=== PATIENT | female | born 1985 | race Caucasian/White ===

== ENCOUNTER 2017-03-27 12:54 | Emergency (ER) | payer OTHER ==
[~2017-03-27] VITALS: Ht 157.5 cm; Wt 100.2 kg
[2017-03-27 13:08] VITALS: Ht 157.5 cm; Wt 100.2 kg
[2017-03-27 13:45] VITALS: BP 142/64
== END 2017-03-27 13:45 | disposition home or self-care (01) ==
LOC: ED 12:54
DX: R07.89 Other chest pain (principal)
CPT/HCPCS: 83880

== ENCOUNTER 2017-05-02 16:52 | Emergency (ER) | payer OTHER ==
[~2017-05-02] VITALS: Ht 162.6 cm; Wt 107.0 kg
[2017-05-02 17:00] VITALS: Ht 162.6 cm; Wt 107.0 kg
[2017-05-02 18:03] LABS: BASOPHIL % 0.5 % (0-2)
[2017-05-02 18:11] LABS: CALCIUM 8.2 mg/dL (8.5-10.1); CARBON DIOXIDE 26.8 mmol/L (21-32); CHLORIDE SERUM 106 mmol/L (98-107); GFR1 > 60 mL/min; GLUCOSE SERUM 113 mg/dL (74-106); PLATELET COUNT 543 x10^3mcL (130-400); POTASSIUM SERUM 4.2 mmol/L (3.5-5.1); RED CELL DISTRIBUTION WIDTH 28.7 % (11.5-14.5); SODIUM SERUM 140 mmol/L (136-145)
[2017-05-02 18:15] LABS: ALKALINE PHOSPHATASE 53 U/L (46-116); ALT/SGPT 31 U/L (14-59); AMYLASE 39 U/L (25-115); AST/SGOT 20 U/L (15-37); BILIRUBIN TOTAL 0.4 mg/dL (0.20-1.00); LIPASE 100 IU/L (73-393); TOTAL PROTEIN, SERUM 7.5 g/dL (6.4-8.2)
[2017-05-02 18:16] VITALS: BP 142/58
[2017-05-02 18:19] LABS: ALBUMIN 3.3 g/dL (3.4-5.0)
[2017-05-02 18:52] LABS: acanthocyte (spur cell) 1+; ovalocyte/elliptocyte 1+; rbc morphology (normal/abnorm) ABNORMAL (NORMAL); target cell (codocyte) 2+
== END 2017-05-02 19:39 | disposition home or self-care (01) ==
LOC: ED 16:52
PROVIDERS: Emergency Medicine
DX: K52.9 Noninfective gastroenteritis and colitis, unspecified (principal); F17.210 Nicotine dependence, cigarettes, uncomplicated; E78.00 Pure hypercholesterolemia, unspecified; I10 Essential (primary) hypertension; Z88.0 Allergy status to penicillin; Z88.1 Allergy status to other antibiotic agents; Z88.8 Allergy status to other drugs, medicaments and biological substances; Z71.6 Tobacco abuse counseling
CPT/HCPCS: 83880; 99406; J1200; J2270; J2405; Q9967

== ENCOUNTER 2018-03-26 18:48 | Inpatient (IN) | payer MEDICAID ==
[~2018-03-26] VITALS: Ht 157.5 cm; Wt 113.0 kg
[2018-03-26 19:20] VITALS: Ht 157.5 cm; Wt 113.0 kg
[2018-03-26 20:23] LABS: BASOPHIL % 2.6 % (0-2); PLATELET COUNT 632 x10^3mcL (130-400); RED CELL DISTRIBUTION WIDTH 19.7 % (11.5-14.5)
[2018-03-26 20:34] LABS: AMPHETAMINE QUAL UR NONE DETECTED (See below)
[2018-03-26 20:42] LABS: CALCIUM 8.2 mg/dL (8.5-10.1); CARBON DIOXIDE 27.4 mmol/L (21-32); CHLORIDE SERUM 102 mmol/L (98-107); CREATININE SERUM 0.9 mg/dL (0.6-1.0); GFR1 > 60 mL/min; GLUCOSE SERUM 90 mg/dL (74-106); POTASSIUM SERUM 3.2 mmol/L (3.5-5.1); SODIUM SERUM 135 mmol/L (136-145)
[2018-03-26 20:51] LABS: ALKALINE PHOSPHATASE 84 U/L (46-116); ALT/SGPT 23 U/L (14-59); AST/SGOT 19 U/L (15-37); BILIRUBIN TOTAL 0.62 mg/dL (0.20-1.00); FREE T4 1.03 ng/dL (0.76-1.46); LIPASE 88 IU/L (73-393); TOTAL PROTEIN, SERUM 8.1 g/dL (6.4-8.2)
[2018-03-26 20:52] LABS: ALBUMIN 3.1 g/dL (3.4-5.0)
[2018-03-26] MEDS ORDERED: ASPIR 8181 MG PO (23:47)
[2018-03-26] MEDS ORDERED: ZESTRIL20 MG PO (23:48)
[2018-03-26] MEDS ORDERED: PLA75 PO (23:48)
[2018-03-27 00:15] LABS: PHOSPHOROUS 2.8 mg/dL (2.5-4.9)
[2018-03-27 00:22] LABS: CHOLESTEROL/HDL RATIO 5.1
[2018-03-27 00:25] LABS: FREE T4 1.04 ng/dL (0.76-1.46); FREE THYROXINE INDEX 2.4 ug/dL (1.4-4.5); T3 TOTAL 0.81 ng/mL; T4(THYROXINE) 6.4 ug/dL (4.7-13.3)
[2018-03-27 00:36] VITALS: BP 144/72
[2018-03-27] MEDS ORDERED: XANAX0.5 MG PO (01:18)
[2018-03-27 05:27] VITALS: BP 147/70
[2018-03-27 06:40] LABS: CALCIUM 8.6 mg/dL (8.5-10.1); CARBON DIOXIDE 25.5 mmol/L (21-32); CHLORIDE SERUM 100 mmol/L (98-107); CREATININE SERUM 0.9 mg/dL (0.6-1.0); GFR1 > 60 mL/min; GLUCOSE SERUM 174 mg/dL (74-106); MAGNESIUM 2.2 mg/dL (1.8-2.4); PHOSPHOROUS 1.4 mg/dL (2.5-4.9); POTASSIUM SERUM 3.8 mmol/L (3.5-5.1); SODIUM SERUM 131 mmol/L (136-145)
[2018-03-27 08:14] LABS: RED CELL DISTRIBUTION WIDTH 19.7 % (11.5-14.5)
[2018-03-27 08:15] LABS: PLATELET COUNT 632 x10^3mcL (130-400)
[2018-03-27 10:45] VITALS: BP 154/75
[2018-03-27 12:29] LABS: BAND NEUTROPHIL 2 % (0-10); MONOCYTE 1 % (0-7); SEGMENTED NEUTROPHILS 90 % (37-75); rbc morphology (normal/abnorm) ABNORMAL (NORMAL)
[2018-03-27 12:30] LABS: acanthocyte (spur cell) 1+; ovalocyte/elliptocyte 1+; target cell (codocyte) 2+
[2018-03-27 12:31] LABS: PLATELET MORPHOLOGY LARGE PLATELET SEEN
[2018-03-27 13:19] LABS: UA SPECIFIC GRAVITY >=1.030 (1.005-1.035); microscopic required? YES; urine erythrocyte 1+ (NEGATIVE)
[2018-03-27 14:40] VITALS: BP 154/71
[2018-03-27 18:58] VITALS: BP 171/71
[2018-03-27 21:42] VITALS: BP 144/62
[2018-03-28] VITALS (7 sets, daily range): BP systolic 135–179; BP diastolic 61–86
[2018-03-28 07:24] LABS: PLATELET COUNT 586 x10^3mcL (130-400); RED CELL DISTRIBUTION WIDTH 20.1 % (11.5-14.5)
[2018-03-28 07:33] LABS: CALCIUM 8.1 mg/dL (8.5-10.1); CARBON DIOXIDE 26.3 mmol/L (21-32); CHLORIDE SERUM 106 mmol/L (98-107); CREATININE SERUM 0.9 mg/dL (0.6-1.0); GFR1 > 60 mL/min; GLUCOSE SERUM 99 mg/dL (74-106); MAGNESIUM 2.2 mg/dL (1.8-2.4); PHOSPHOROUS 3.4 mg/dL (2.5-4.9); POTASSIUM SERUM 4.1 mmol/L (3.5-5.1); SODIUM SERUM 140 mmol/L (136-145)
[2018-03-28 10:04] LABS: BAND NEUTROPHIL 5 % (0-10); BASOPHIL 0 % (0-2); MONOCYTE 4 % (0-7); SEGMENTED NEUTROPHILS 81 % (37-75)
[2018-03-28 10:05] LABS: PLATELET MORPHOLOGY PLATELETS INCREASED; acanthocyte (spur cell) 1+; ovalocyte/elliptocyte 1+; rbc morphology (normal/abnorm) ABNORMAL (NORMAL); target cell (codocyte) 1+
[2018-03-29 06:09] VITALS: BP 152/72
[2018-03-29 07:12] LABS: CALCIUM 8.5 mg/dL (8.5-10.1); CARBON DIOXIDE 28.6 mmol/L (21-32); CHLORIDE SERUM 102 mmol/L (98-107); CREATININE SERUM 0.9 mg/dL (0.6-1.0); GFR1 > 60 mL/min; GLUCOSE SERUM 88 mg/dL (74-106); POTASSIUM SERUM 4.2 mmol/L (3.5-5.1); SODIUM SERUM 134 mmol/L (136-145)
[2018-03-29 08:40] LABS: PLATELET COUNT 629 x10^3mcL (130-400); RED CELL DISTRIBUTION WIDTH 19.5 % (11.5-14.5)
[2018-03-29 09:44] VITALS: BP 118/51
[2018-03-29 11:02] LABS: ATYPICAL LYMPH 8 %; BAND NEUTROPHIL 1 % (0-10); MONOCYTE 7 % (0-7); PLATELET MORPHOLOGY PLATELETS INCREASED; SEGMENTED NEUTROPHILS 67 % (37-75); acanthocyte (spur cell) 2+; rbc morphology (normal/abnorm) ABNORMAL (NORMAL)
[2018-03-29 12:47] VITALS: BP 143/68
[2018-03-29 17:20] VITALS: BP 121/50
[2018-03-29 21:17] VITALS: BP 108/54
[2018-03-30 05:15] VITALS: BP 98/48
[2018-03-30 07:29] LABS: CALCIUM 8.5 mg/dL (8.5-10.1); CARBON DIOXIDE 27.4 mmol/L (21-32); CHLORIDE SERUM 101 mmol/L (98-107); CREATININE SERUM 1.1 mg/dL (0.6-1.0); GFR1 > 60 mL/min; GLUCOSE SERUM 95 mg/dL (74-106); POTASSIUM SERUM 3.7 mmol/L (3.5-5.1); SODIUM SERUM 137 mmol/L (136-145)
[2018-03-30 08:50] LABS: PLATELET COUNT 587 x10^3mcL (130-400)
[2018-03-30 08:53] VITALS: BP 120/48
[2018-03-30 10:17] LABS: ATYPICAL LYMPH 9 %; BAND NEUTROPHIL 0 % (0-10); BASOPHIL 0 % (0-2); MONOCYTE 10 % (0-7); SEGMENTED NEUTROPHILS 66 % (37-75)
[2018-03-30 10:18] LABS: PLATELET MORPHOLOGY PLATELETS INCREASED; rbc morphology (normal/abnorm) ABNORMAL (NORMAL); schistocyte (helmet cell) 1+
[2018-03-30 13:31] VITALS: BP 131/53
[2018-03-30 17:24] VITALS: BP 102/42
[2018-03-30 20:52] VITALS: BP 103/45
[2018-03-30 22:48] VITALS: BP 115/57
[2018-03-31 05:32] VITALS: BP 117/59
[2018-03-31 09:05] LABS: PLATELET COUNT 618 x10^3mcL (130-400); RED CELL DISTRIBUTION WIDTH 19.6 % (11.5-14.5)
[2018-03-31 09:13] LABS: CALCIUM 8.2 mg/dL (8.5-10.1); CARBON DIOXIDE 28.7 mmol/L (21-32); CREATININE SERUM 1.3 mg/dL (0.6-1.0)
[2018-03-31 09:59] LABS: ATYPICAL LYMPH 11 %; BAND NEUTROPHIL 0 % (0-10); BASOPHIL 0 % (0-2); MONOCYTE 4 % (0-7); SEGMENTED NEUTROPHILS 70 % (37-75)
[2018-03-31 10:00] LABS: PLATELET MORPHOLOGY PLATELETS INCREASED; acanthocyte (spur cell) 1+; rbc morphology (normal/abnorm) ABNORMAL (NORMAL); tear drop cell (dacryocyte) 2+
[2018-03-31 10:09] VITALS: BP 109/36
[2018-03-31 13:40] VITALS: BP 137/47
[2018-03-31 17:13] VITALS: BP 130/46
[2018-03-31 20:33] VITALS: BP 125/39
[2018-04-01 05:19] VITALS: BP 114/30
[2018-04-01 06:39] LABS: CALCIUM 8.3 mg/dL (8.5-10.1); CHLORIDE SERUM 104 mmol/L (98-107); GFR1 > 60 mL/min; GLUCOSE SERUM 91 mg/dL (74-106); POTASSIUM SERUM 4.7 mmol/L (3.5-5.1); SODIUM SERUM 137 mmol/L (136-145)
[2018-04-01 07:56] LABS: PLATELET COUNT 594 x10^3mcL (130-400); RED CELL DISTRIBUTION WIDTH 19.5 % (11.5-14.5)
[2018-04-01 09:00] VITALS: BP 145/73
== END 2018-04-01 11:43 | disposition left against medical advice (07) | DRG 720 ==
LOC: ED 18:48 → DU 23:11
PROVIDERS: Emergency Medicine; ADMIT Family Medicine
DX: A41.9 Sepsis, unspecified organism (principal); N17.0 Acute kidney failure with tubular necrosis; J18.9 Pneumonia, unspecified organism; D89.9 Disorder involving the immune mechanism, unspecified; E66.01 Morbid (severe) obesity due to excess calories; E44.1 Mild protein-calorie malnutrition; E11.9 Type 2 diabetes mellitus without complications; M94.0 Chondrocostal junction syndrome [Tietze]; Z68.41 Body mass index [BMI] 40.0-44.9, adult; E87.6 Hypokalemia; E87.1 Hypo-osmolality and hyponatremia; I10 Essential (primary) hypertension; D47.3 Essential (hemorrhagic) thrombocythemia; J20.9 Acute bronchitis, unspecified; I25.10 Atherosclerotic heart disease of native coronary artery without angina pectoris; Z95.1 Presence of aortocoronary bypass graft; Z90.81 Acquired absence of spleen; Z86.711 Personal history of pulmonary embolism; F17.210 Nicotine dependence, cigarettes, uncomplicated
CPT/HCPCS: 82962; 83880; 84439; 87804; J1200; J1580; J1956; J2060; J2270; J2405; J2930; J3490; J7030; J7620; Q0092; Q0163

== ENCOUNTER 2018-04-29 16:28 | Inpatient (IN) | payer SELFPAY ==
[~2018-04-29] VITALS: Ht 157.5 cm; Wt 109.0 kg
[~2018-04-29 16:28] MED LIST: ASPIR 8181 MG PO; PLA75 PO; XANAX0.5 MG PO; ZESTRIL20 MG PO
[2018-04-29 16:32] VITALS: Ht 157.5 cm; Wt 109.0 kg
[2018-04-29 17:44] LABS: RED CELL DISTRIBUTION WIDTH 19.4 % (11.5-14.5)
[2018-04-29 17:54] LABS: ALKALINE PHOSPHATASE 72 U/L (46-116); ALT/SGPT 37 U/L (14-59); AMYLASE 28 U/L (25-115); AST/SGOT 23 U/L (15-37); BILIRUBIN TOTAL 0.61 mg/dL (0.20-1.00); CALCIUM 8.4 mg/dL (8.5-10.1); CARBON DIOXIDE 27.2 mmol/L (21-32); CREATININE SERUM 0.9 mg/dL (0.6-1.0); GFR1 > 60 mL/min; GLUCOSE SERUM 92 mg/dL (74-106); LIPASE 58 IU/L (73-393); T4(THYROXINE) 5.5 ug/dL (4.7-13.3); TOTAL PROTEIN, SERUM 7.9 g/dL (6.4-8.2)
[2018-04-29 17:55] LABS: ALBUMIN 2.8 g/dL (3.4-5.0); CHOLESTEROL 108 mg/dL (<200); HDL CHOLESTEROL 22 mg/dL (40-60)
[2018-04-29 17:59] LABS: CHLORIDE SERUM 104 mmol/L (98-107); POTASSIUM SERUM 3.6 mmol/L (3.5-5.1); SODIUM SERUM 139 mmol/L (136-145)
[2018-04-29 18:20] LABS: BAND NEUTROPHIL 0 % (0-10); BASOPHIL 0 % (0-2); MONOCYTE 7 % (0-7); SEGMENTED NEUTROPHILS 64 % (37-75)
[2018-04-29 18:21] LABS: rbc morphology (normal/abnorm) ABNORMAL (NORMAL)
[2018-04-29 18:24] LABS: PLATELET COUNT 501 x10^3mcL (130-400)
[2018-04-29 19:55] LABS: UA SPECIFIC GRAVITY >=1.030 (1.005-1.035); microscopic required? YES; urine erythrocyte 1+ (NEGATIVE)
[2018-04-29 20:14] LABS: AMPHETAMINE QUAL UR NONE DETECTED (See below)
[2018-04-29 21:02] VITALS: BP 146/56
[2018-04-29 21:03] LABS: MAGNESIUM 2.1 mg/dL (1.8-2.4); PHOSPHOROUS 2.6 mg/dL (2.5-4.9)
[2018-04-29 21:04] LABS: CHOLESTEROL/HDL RATIO 5.6
[2018-04-30] VITALS (8 sets, daily range): BP systolic 129–160; BP diastolic 50–80
[2018-04-30 12:36] LABS: CALCIUM 8.1 mg/dL (8.5-10.1); CARBON DIOXIDE 25.9 mmol/L (21-32); CHLORIDE SERUM 105 mmol/L (98-107); GFR1 > 60 mL/min; GLUCOSE SERUM 194 mg/dL (74-106); POTASSIUM SERUM 3.9 mmol/L (3.5-5.1); SODIUM SERUM 138 mmol/L (136-145)
[2018-04-30 12:52] LABS: PLATELET COUNT 483 x10^3mcL (130-400); RED CELL DISTRIBUTION WIDTH 19.7 % (11.5-14.5)
[2018-04-30 13:11] LABS: ATYPICAL LYMPH 3 %; BAND NEUTROPHIL 7 % (0-10); BASOPHIL 0 % (0-2); MONOCYTE 3 % (0-7); SEGMENTED NEUTROPHILS 79 % (37-75)
[2018-04-30 13:12] LABS: rbc morphology (normal/abnorm) ABNORMAL (NORMAL)
[2018-04-30 13:13] LABS: PLATELET MORPHOLOGY PLATELETS INCREASED; target cell (codocyte) 2+
[2018-05-01 05:58] VITALS: BP 118/54
[2018-05-01 07:33] LABS: CALCIUM 8.2 mg/dL (8.5-10.1); CARBON DIOXIDE 26.9 mmol/L (21-32); CHLORIDE SERUM 106 mmol/L (98-107); CREATININE SERUM 0.9 mg/dL (0.6-1.0); GFR1 > 60 mL/min; GLUCOSE SERUM 116 mg/dL (74-106); POTASSIUM SERUM 3.5 mmol/L (3.5-5.1); SODIUM SERUM 143 mmol/L (136-145)
[2018-05-01 08:14] LABS: PLATELET COUNT 525 x10^3mcL (130-400); RED CELL DISTRIBUTION WIDTH 19.6 % (11.5-14.5)
[2018-05-01 09:47] VITALS: BP 129/70
[2018-05-01 11:50] LABS: ATYPICAL LYMPH 1 %; BAND NEUTROPHIL 4 % (0-10); BASOPHIL 0 % (0-2); MONOCYTE 9 % (0-7); MYELOCYTE 1 % (0-2); SEGMENTED NEUTROPHILS 61 % (37-75)
[2018-05-01 11:53] LABS: rbc morphology (normal/abnorm) ABNORMAL (NORMAL)
[2018-05-01 11:54] LABS: burr cell (echinocyte) 1+; ovalocyte/elliptocyte 1+; schistocyte (helmet cell) 1+; target cell (codocyte) 2+; tear drop cell (dacryocyte) 1+
[2018-05-01 14:12] VITALS: BP 160/83
[2018-05-01 17:31] VITALS: BP 120/47
[2018-05-01 20:53] VITALS: BP 114/50
[2018-05-02 05:46] VITALS: BP 119/74
[2018-05-02 07:44] LABS: CALCIUM 7.8 mg/dL (8.5-10.1); CARBON DIOXIDE 27.8 mmol/L (21-32); CHLORIDE SERUM 106 mmol/L (98-107); GFR1 > 60 mL/min; GLUCOSE SERUM 89 mg/dL (74-106); POTASSIUM SERUM 4.4 mmol/L (3.5-5.1); SODIUM SERUM 140 mmol/L (136-145)
[2018-05-02 08:19] VITALS: BP 128/61
[2018-05-02 08:27] LABS: PLATELET COUNT 512 x10^3mcL (130-400); RED CELL DISTRIBUTION WIDTH 19.7 % (11.5-14.5)
[2018-05-02 11:51] VITALS: BP 146/61
[2018-05-02 14:48] LABS: ATYPICAL LYMPH 9 %; BAND NEUTROPHIL 1 % (0-10); BASOPHIL 0 % (0-2); MONOCYTE 13 % (0-7); SEGMENTED NEUTROPHILS 45 % (37-75); rbc morphology (normal/abnorm) ABNORMAL (NORMAL)
[2018-05-02 14:49] LABS: PLATELET MORPHOLOGY PLATELETS INCREASED; target cell (codocyte) 2+
[2018-05-02 16:22] VITALS: BP 156/83
[2018-05-02 20:57] VITALS: BP 172/88
[2018-05-03] VITALS (7 sets, daily range): BP systolic 133–185; BP diastolic 55–83
[2018-05-03 06:09] LABS: CALCIUM 8.2 mg/dL (8.5-10.1); CHLORIDE SERUM 105 mmol/L (98-107); GFR1 > 60 mL/min; GLUCOSE SERUM 104 mg/dL (74-106); POTASSIUM SERUM 4.2 mmol/L (3.5-5.1); SODIUM SERUM 139 mmol/L (136-145)
[2018-05-03 07:30] LABS: RED CELL DISTRIBUTION WIDTH 19.2 % (11.5-14.5)
[2018-05-03 09:35] LABS: MONOCYTE 2 % (0-7); PLATELET MORPHOLOGY PLATELETS INCREASED; SEGMENTED NEUTROPHILS 52 % (37-75); rbc morphology (normal/abnorm) ABNORMAL (NORMAL); target cell (codocyte) 1+
[2018-05-03 09:38] LABS: PLATELET COUNT 527 x10^3mcL (130-400)
[2018-05-04 05:33] VITALS: BP 125/53
[2018-05-04 05:51] VITALS: BP 155/67
[2018-05-04 06:12] LABS: BASOPHIL % 0.2 % (0-2)
[2018-05-04 06:47] LABS: CALCIUM 8.2 mg/dL (8.5-10.1); CARBON DIOXIDE 24.2 mmol/L (21-32); CHLORIDE SERUM 104 mmol/L (98-107); GFR1 > 60 mL/min; GLUCOSE SERUM 107 mg/dL (74-106); SODIUM SERUM 138 mmol/L (136-145)
[2018-05-04 07:39] VITALS: BP 135/62
[2018-05-04 09:40] LABS: RED CELL DISTRIBUTION WIDTH 19.2 % (11.5-14.5)
[2018-05-04 09:44] LABS: PLATELET COUNT 554 x10^3mcL (130-400)
[2018-05-04] MEDS ORDERED: MUCINEX600 MG PO (10:16)
[2018-05-04] MEDS ORDERED: DOXYCYCLINE HY100 MG PO (10:16)
[2018-05-04] MEDS ORDERED: LAC PO (10:17)
[2018-05-04 12:23] VITALS: BP 135/62
== END 2018-05-04 13:12 | disposition home or self-care (01) | DRG 193 ==
LOC: ED 16:28 → DU 19:44
PROVIDERS: Emergency Medicine; ADMIT Internal Medicine
DX: J18.1 Lobar pneumonia, unspecified organism (principal); J96.01 Acute respiratory failure with hypoxia; N17.0 Acute kidney failure with tubular necrosis; Q89.01 Asplenia (congenital); E44.0 Moderate protein-calorie malnutrition; R65.10 Systemic inflammatory response syndrome (SIRS) of non-infectious origin without acute organ dysfunction; Z68.41 Body mass index [BMI] 40.0-44.9, adult; Z88.0 Allergy status to penicillin; Z88.8 Allergy status to other drugs, medicaments and biological substances; Z90.81 Acquired absence of spleen; I11.0 Hypertensive heart disease with heart failure; I50.9 Heart failure, unspecified; Z95.1 Presence of aortocoronary bypass graft; E78.00 Pure hypercholesterolemia, unspecified; F41.9 Anxiety disorder, unspecified; I25.10 Atherosclerotic heart disease of native coronary artery without angina pectoris; F17.200 Nicotine dependence, unspecified, uncomplicated; Z71.3 Dietary counseling and surveillance; E66.01 Morbid (severe) obesity due to excess calories; D47.3 Essential (hemorrhagic) thrombocythemia; Z90.49 Acquired absence of other specified parts of digestive tract; N26.1 Atrophy of kidney (terminal); E11.65 Type 2 diabetes mellitus with hyperglycemia; M94.0 Chondrocostal junction syndrome [Tietze]
CPT/HCPCS: 36600; 83880; 85378; 87804; 90732; 94150; 99406; J0132; J0456; J1200; J1644; J1956; J2270; J2405; J2930; J3490; J7613; J7620; J7644; Q0092; Q9967

== ENCOUNTER 2018-06-20 16:21 | Inpatient (IN) | payer SELFPAY ==
[~2018-06-20] VITALS: Ht 154.9 cm; Wt 111.2 kg
[~2018-06-20 16:21] MED LIST changes: +DOXYCYCLINE HY100 MG PO; +LAC PO; +MUCINEX600 MG PO
[2018-06-20 16:26] VITALS: Ht 154.9 cm; Wt 111.2 kg
--- NOTE | 2018-06-20 17:09 | NUR ---
PT PRESENTS TO ED WITH C/O CHEST PAIN AND SOB X4 DAYS. PT STS SHE WAS SEEN AT [facility] ON 05/23/18 AND WAS TOLD SHE HAS "A CLOT" IN HER LUNGS. PT WAS PRESCRIBED BLOOD THINNER BUT HAS NOT BEEN ABLE TO FILL RX DUE TO COST. PT STS CP BECAME WORSE TODAY SO SHE CAME TO ED. PT DENIES FEVER, SYNCOPE, ABDOMINAL PAIN, OR GENERAL WEAKNESS. PT STS CHEST PAIN FEELS LIKE PRESSURE IN THE CENTER OF HER CHEST AND DOES NOT RADIATE. PT AAOX4, ON FULL CM, RESP E/U, SITTING UP ON GURNEY, NO ACUTE DISTRESS NOTED AT THIS TIME. WILL CONTINUE TO MONITOR.
[2018-06-20 17:18] LABS: PLATELET COUNT 556 x10^3mcL (130-400); RED CELL DISTRIBUTION WIDTH 20.1 % (11.5-14.5)
[2018-06-20 17:23] LABS: CALCIUM 8.4 mg/dL (8.5-10.1); CARBON DIOXIDE 27.9 mmol/L (21-32); CHLORIDE SERUM 106 mmol/L (98-107); GFR1 > 60 mL/min; GLUCOSE SERUM 128 mg/dL (74-106); POTASSIUM SERUM 3.9 mmol/L (3.5-5.1); SODIUM SERUM 141 mmol/L (136-145)
[2018-06-20 17:35] LABS: ALKALINE PHOSPHATASE 70 U/L (46-116); ALT/SGPT 33 U/L (14-59); AST/SGOT 14 U/L (15-37); BILIRUBIN TOTAL 0.49 mg/dL (0.20-1.00); TOTAL PROTEIN, SERUM 7.4 g/dL (6.4-8.2)
[2018-06-20 17:54] LABS: BAND NEUTROPHIL 0 % (0-10); BASOPHIL 0 % (0-2); MONOCYTE 5 % (0-7); SEGMENTED NEUTROPHILS 68 % (37-75); rbc morphology (normal/abnorm) ABNORMAL (NORMAL)
--- NOTE | 2018-06-20 18:00 | NUR ---
PT REQUESTED MED FOR CHEST PAIN, NOTIFIED.
--- NOTE | 2018-06-20 19:13 | NUR ---
PT TO CT VIA GURNEY IN NAD. BREATHING EVEN AND UNLABORED. AWAKE AND ALERT.
--- NOTE | 2018-06-20 19:22 | NUR ---
REPORT GIVEN TO RAVINDER HUIZAR TO ASSUME CARE OF PT.
--- NOTE | 2018-06-20 19:35 | NUR ---
PT BACK FROM CT VIA AMBERLY. PT A&OX4, SPEAKING FULL CLEAR SENTENCES. PT IN NAD. BREATHING EVEN AND UNLABORED. CM AND [address] WILL CONTINUE TO MONITOR.
--- NOTE | 2018-06-20 20:45 | NUR ---
PT OBSERVED RESTING ON GURNEY IN NAD. BREATHING EVEN AND UNLABORED. PT A&OX4, SPEAKING FULL CLEAR SENTENCES. LIGHTS OFF FOR PT COMFORT. WILL CONTINUE TO MONITOR.
--- NOTE | 2018-06-20 22:01 | NUR ---
PT PROVIDED WITH ICE FOR SPORTS DRINK BROUGHT FROM HOME, OKAY PER DR AZUL.
--- NOTE | 2018-06-21 00:04 | NUR ---
MEDICATION ADMINISTERED PER MD ORDER
--- NOTE | 2018-06-21 00:58 | NUR ---
PT IN NAD, A&OX4, SPEAKING FULL CLEAR SENTENCES. BREATHING EVEN AND UNLABORED, PT AMBULATED TO RESTROOM WITH STEADY GAIT. WILL CONTINUE TO MONITOR.
[2018-06-21] MEDS ORDERED: METOPROLOL SUCC50 M2 PO (01:04)
[2018-06-21] MEDS ORDERED: LASIX40 MG PO (01:05)
[2018-06-21] MEDS ORDERED: PRAVACHOL20 MG (01:06)
[2018-06-21 01:18] LABS: FREE T4 0.93 ng/dL (0.76-1.46); FREE THYROXINE INDEX 2.1 ug/dL (1.4-4.5); T4(THYROXINE) 5.8 ug/dL (4.7-13.3)
[2018-06-21 01:19] LABS: T3 TOTAL 0.81 ng/mL
--- NOTE | 2018-06-21 01:23 | NUR ---
REPORT GIVEN TO KARUNA CASTELLON
--- NOTE | 2018-06-21 01:25 | NUR ---
RECEIVED REPORT FROM ARNOLD IN ED. AWAITING PT TRANSFER TO UNIT.
--- NOTE | 2018-06-21 01:35 | NUR ---
PT ARRIVED VIA GUERNEY ACCOMANIED BY 2 RN'S FROM ED. PT TRANSFERRED TO BED, DIRT SHOVELER PLACED ON PT #21. PT STATES HAVING SLIGHT PRESSURE 2/10 PAIN IN HER CHEST THAT HAS DECREASED AFTER GETTING MORPHINE IN ED. BREATHING IS EVEN AND SHALLOW. LUNG SOUNDS ARE CLEAR TO UPPER LOBES AND DIMINISHED TO BILATERAL BASES. VS HR 104, BP 152/69 (90), RR 24. PT HAS MEDLINE CHEST HEALED INCISION FROM PREVIOUS DOUBLE BYPASS SURGERY IN 2016. PULSES PALPABLE. CAP REFILL < 3 SEC. SKIN WARM, DRY. PT HAS R AC 20G SALINE LOCK. BS ACTIVE X 4. ABDOMEN ROUND, NONTENDER. NO N/V NOTED. PT IS AMBULATORY WITH STEADY GAIT. VOIDS FREELY. BED IN LOW POSITION. CALL LIGHT WITHIN REACH. WILL CONTINUE TO MONITOR.
--- NOTE | 2018-06-21 01:35 | NUR ---
PT TRANSFERED TO ROOM 252 AT THIS TIME ACCOMPAINED BY ME RN AND EMT MANUEL. PT IN NAD. BREATHING EVEN AND UNLABORED. PT A&OX4, SPEAKING FULL CLEAR SENTENCES. PT AMBULATED TO BED FROM [facility] WITH STEADY GAIT. TRANSFER CM IN PLACE. PT VERBALIZED UNDERSTANDING OF PLAN OF CARE. PT BELONGINGS SENT WITH PT.
--- NOTE | 2018-06-21 01:56 | NUR ---
RT CELESTINA AT BEDSIDE ASSESSING PT AND PRIVIDING INCENTIVE SPIROMETER. TEACHING PROVIDED ON HOW TO USE DEVICE.
[2018-06-21 02:01] VITALS: BP 152/69
--- NOTE | 2018-06-21 02:53 | NUR ---
PT C/O 10/01 CHEST PAIN, PRESSURE. GIVEN MORPHINE 2MG IVP. WILL REASSESS PT FOR RELIEF OF PAIN.
--- NOTE | 2018-06-21 03:20 | NUR ---
REASSESSED PT AFTER GIVING MORHINE 2MG IVP. PT STATES RELIEF OF CHEST PAIN.
[2018-06-21 06:32] VITALS: BP 129/60
--- NOTE | 2018-06-21 07:24 | NUR ---
GAVE REPORT TO CRYSTAL CASTELLON. ALL QUESTIONS AND CONCERNS ADDRESSED.
[2018-06-21 09:03] LABS: RED CELL DISTRIBUTION WIDTH 20.5 % (11.5-14.5)
[2018-06-21 09:16] LABS: CALCIUM 8.4 mg/dL (8.5-10.1); CARBON DIOXIDE 26.3 mmol/L (21-32); CHLORIDE SERUM 105 mmol/L (98-107); CREATININE SERUM 0.8 mg/dL (0.6-1.0); GFR1 > 60 mL/min; GLUCOSE SERUM 87 mg/dL (74-106); MAGNESIUM 1.8 mg/dL (1.8-2.4); PHOSPHOROUS 4.4 mg/dL (2.5-4.9); POTASSIUM SERUM 3.7 mmol/L (3.5-5.1); SODIUM SERUM 139 mmol/L (136-145)
[2018-06-21 09:33] VITALS: BP 131/70
--- NOTE | 2018-06-21 11:15 | NUR ---
SHE WILL BE DISCHARGED HOME. DC'D TELE AND SL TO RAC ANGIO INTACT. AAO TIMES 4. DR YEE IS WRITING HER DISCHARGE.
[2018-06-21 11:52] VITALS: BP 131/70
--- NOTE | 2018-06-21 12:05 | NUR ---
GAVE DISCHARGE INSTRUCTIONS AND PRESCRIPTIONS. DC'S SL ANGIO INTACT. TELE BOX WAS RETURNED TO TELE ROOM.
[2018-06-21 12:58] LABS: ATYPICAL LYMPH 4 %; BAND NEUTROPHIL 1 % (0-10); BASOPHIL 0 % (0-2); MONOCYTE 10 % (0-7); PLATELET MORPHOLOGY PLATELETS INCREASED; SEGMENTED NEUTROPHILS 68 % (37-75); rbc morphology (normal/abnorm) ABNORMAL (NORMAL)
[2018-06-21 15:52] LABS: PLATELET COUNT 506 x10^3mcL (130-400)
== END 2018-06-21 12:00 | disposition home or self-care (01) | DRG 871 ==
LOC: ED 16:21 → DU 06-21 00:11
PROVIDERS: Emergency Medicine; ADMIT General Practice
DX: A41.9 Sepsis, unspecified organism (principal); J96.00 Acute respiratory failure, unspecified whether with hypoxia or hypercapnia; E44.0 Moderate protein-calorie malnutrition; Z68.41 Body mass index [BMI] 40.0-44.9, adult; Q89.01 Asplenia (congenital); I11.0 Hypertensive heart disease with heart failure; I50.9 Heart failure, unspecified; I25.10 Atherosclerotic heart disease of native coronary artery without angina pectoris; F17.210 Nicotine dependence, cigarettes, uncomplicated; E66.9 Obesity, unspecified; D47.3 Essential (hemorrhagic) thrombocythemia; E11.65 Type 2 diabetes mellitus with hyperglycemia; F41.9 Anxiety disorder, unspecified; Z88.6 Allergy status to analgesic agent; Z95.1 Presence of aortocoronary bypass graft; Z88.1 Allergy status to other antibiotic agents; Z88.0 Allergy status to penicillin; Z88.8 Allergy status to other drugs, medicaments and biological substances; Z84.89 Family history of other specified conditions
CPT/HCPCS: 82962; 83880; 84439; 85378; 87804; 94150; J1200; J1940; J2270; J2405; Q0092; Q9967

== ENCOUNTER 2018-08-27 16:02 | Emergency (ER) | payer OTHER ==
[~2018-08-27] VITALS: Ht 165.1 cm; Wt 109.3 kg
[~2018-08-27 16:02] MED LIST changes: +LASIX40 MG PO; +METOPROLOL SUCC50 M2 PO; +PRAVACHOL20 MG
[2018-08-27 16:05] VITALS: Ht 165.1 cm; Wt 109.3 kg
[2018-08-27 16:29] LABS: CALCIUM 8.8 mg/dL (8.5-10.1); CARBON DIOXIDE 26.5 mmol/L (21-32); CHLORIDE SERUM 106 mmol/L (98-107); CREATININE SERUM 1.1 mg/dL (0.6-1.0); GFR1 > 60 mL/min; GLUCOSE SERUM 119 mg/dL (74-106); PLATELET COUNT 574 x10^3mcL (130-400); POTASSIUM SERUM 3.8 mmol/L (3.5-5.1); RED CELL DISTRIBUTION WIDTH 23.1 % (11.5-14.5); SODIUM SERUM 138 mmol/L (136-145)
[2018-08-27 16:34] LABS: ALKALINE PHOSPHATASE 70 U/L (46-116); ALT/SGPT 28 U/L (14-59); AST/SGOT 12 U/L (15-37); BILIRUBIN TOTAL 0.4 mg/dL (0.20-1.00); TOTAL PROTEIN, SERUM 7.8 g/dL (6.4-8.2)
[2018-08-27 16:35] LABS: ALBUMIN 3.2 g/dL (3.4-5.0)
[2018-08-27 16:45] LABS: MONOCYTE 5 % (0-7); SEGMENTED NEUTROPHILS 63 % (37-75)
[2018-08-27 16:46] LABS: BAND NEUTROPHIL 2 % (0-10); BASOPHIL 0 % (0-2); rbc morphology (normal/abnorm) NORMAL (NORMAL)
[2018-08-27 19:51] VITALS: BP 152/89
== END 2018-08-27 19:51 | disposition home or self-care (01) ==
LOC: ED 16:02
DX: R10.11 Right upper quadrant pain (principal); I11.0 Hypertensive heart disease with heart failure; I50.9 Heart failure, unspecified; F41.9 Anxiety disorder, unspecified; E78.00 Pure hypercholesterolemia, unspecified; Z90.89 Acquired absence of other organs; Z98.890 Other specified postprocedural states; Z88.6 Allergy status to analgesic agent; Z88.0 Allergy status to penicillin; Z88.1 Allergy status to other antibiotic agents
CPT/HCPCS: 36415; J3010; Q0092

== ENCOUNTER 2019-03-13 11:58 | Inpatient (IN) | payer MEDICAID ==
[~2019-03-13] VITALS: Ht 154.9 cm; Wt 107.5 kg
[2019-03-13 12:03] VITALS: Ht 154.9 cm; Wt 107.5 kg
--- NOTE | 2019-03-13 12:31 | NUR ---
PATIENT AAOX4 PRESENTS TO THE ED WITH C/O SOB, CHEST PAIN X 5 DAYS. PT HAS HX OF CHF AND STATES SHE HAS BEEN UNABLE TO SEE PCP TO GET REEVALUATED FOR [place] OPTIONS. PT STS THAT SHE RAN OUT OF HER LASIX 2 DAYS AGO. PATIENT C/O N/V X 2 DAYS AND STATES CHEST PAIN RADIATES TO RIGHT ARM AND NECK. BREATHING E/U, SKIN WARM DRY AND INTACT. PT PLACED ON ALL MONITORS FOR FURTHER OBSERVATION. WILL CONTINUE TO MONITOR.
--- NOTE | 2019-03-13 13:07 | NUR ---
MEDICATED PER MD ORDERS - SEE EMR
[2019-03-13 13:14] LABS: CALCIUM 8.7 mg/dL (8.5-10.1); CARBON DIOXIDE 25.5 mmol/L (21-32); CHLORIDE SERUM 107 mmol/L (98-107); CREATININE SERUM 0.8 mg/dL (0.6-1.0); GFR1 > 60 mL/min; GLUCOSE SERUM 88 mg/dL (74-106); SODIUM SERUM 141 mmol/L (136-145)
[2019-03-13 13:19] LABS: ALKALINE PHOSPHATASE 71 U/L (46-116); ALT/SGPT 21 U/L (14-59); AST/SGOT 7 U/L (15-37); BILIRUBIN TOTAL 0.53 mg/dL (0.20-1.00); TOTAL PROTEIN, SERUM 7.9 g/dL (6.4-8.2)
[2019-03-13 13:22] LABS: ALBUMIN 3.2 g/dL (3.4-5.0)
[2019-03-13 13:26] LABS: RED CELL DISTRIBUTION WIDTH 20.3 % (11.5-14.5)
[2019-03-13 13:50] LABS: SEGMENTED NEUTROPHILS 68 % (37-75)
[2019-03-13 13:51] LABS: MONOCYTE 6 % (0-7); burr cell (echinocyte) 1+; ovalocyte/elliptocyte 1+; rbc morphology (normal/abnorm) ABNORMAL (NORMAL)
[2019-03-13 14:01] LABS: target cell (codocyte) 1+
[2019-03-13 14:03] LABS: PLATELET COUNT 637 x10^3mcL (130-400)
--- NOTE | 2019-03-13 14:10 | NUR ---
PATIENT AMBULATED TO BATHROOM WITHOUT ASSISTANCE. GAIT STEADY- WILL CONTINUE TO MONITOR.
--- NOTE | 2019-03-13 14:10 | NUR ---
MEDICATED PER MD ORDERS- SEE EMR
--- NOTE | 2019-03-13 14:45 | NUR ---
REVIEWED LABS AND DIAGNOSTICS. WILL CONTINUE TO MONITOR.
--- NOTE | 2019-03-13 15:53 | NUR ---
PATIENT ON HER PHONE LYING ON GURNEY- NAD NOTED WILL CONTINUE TO MONITOR.
--- NOTE | 2019-03-13 16:10 | NUR ---
MEDICATED FOR PAIN PER MD ORDERS- SEE EMR
--- NOTE | 2019-03-13 16:19 | NUR ---
REPORT PROVIDED TO KAMILLE JIMBO FOR CONTINUED CARE OF PATIENT. PT ON HOLD FOR TRANSFER PENDING MD COMING TO TALK TO HER.
--- NOTE | 2019-03-13 17:00 | NUR ---
REPORT RECEIVED FROM ED SÁNCHEZ RN. PATIENT ARRIVED TO ROOM 219 TELEMETRY. ABLE TO WALK FROM [facility] TO BED. PATIENT IS ALERT AND ORIENTED X 4. RESPIRATION EVEN AND UNLABORED. NO SHORTNESS OF BREATH. PATIENT EXPLAINED SHE HAS BILATERAL POSTERIOR FLANK PAIN 7/10. PULSES STRONG, REGULAR BILATERAL UPPER AND LOWER EXTREMITIES. PATIENT HAD BOWEL MOVEMENT TODAY AND URINATES IN TOILET ON A REGULAR BASIS. PATIENT HAS AN OLD SCAR IN THE MIDDLE OF HER CHEST. BOILS ARE NOTED ON RIGHT BREAST. EDUCATED PRIMARY CARE NURSE LIGHT USE AND SIDE RAIL SAFETY. WILL CONTINUE TO MONITOR. CALL LIGHT WITHIN REACH.
--- NOTE | 2019-03-13 17:13 | NUR ---
PATIENT REFUSES TO HAVE PICTURES TAKEN OF THE BOILS NOTED ON THE RIGHT SIDE OF HER CHEST UPON ADMISSION. PATIENT HAS A MARKED OLD SCAR ON THE MIDDLE AREA OF HER CHEST. WILL CONTINUE TO MONITOR.
[2019-03-13 17:19] LABS: MAGNESIUM 2.2 mg/dL (1.8-2.4); PHOSPHOROUS 2.6 mg/dL (2.5-4.9)
[2019-03-13 17:25] LABS: CHOLESTEROL/HDL RATIO 4.1
[2019-03-13 18:06] VITALS: BP 154/82
--- NOTE | 2019-03-13 18:09 | NUR ---
ATTEMPTED ABG, OBTAINED VENOUS. PT REFUSED ANOTHER ATTEMPT AT THIS TIME, STATES TO COME BACK IN AN HOUR OR MORE SO SHE CAN REST. RESIDENT DR PERES PAGED, AWAITING CALL BACK.
[2019-03-13 18:13] VITALS: BP 158/69
--- NOTE | 2019-03-13 18:47 | NUR ---
DR. LANDRY MADE ROUNDS TO SEE PATIENT. EXPLAINED TO PHYSICIAN REGARDING PATIENT'S REQUEST FOR MORPHINE PAIN MEDICINE. PATIENT HAS PAIN 11/01. PATIENT SPOKE TO DR. 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
[2019-03-13 19:09] LABS: microscopic required? YES; urine erythrocyte TRACE (NEGATIVE)
--- NOTE | 2019-03-13 19:20 | NUR ---
RECIEVED PT RESTING IN BED WITH NO ACUTE DISTRESS NOTED AT THIS TIME, ASSESMENT PERFORMED AT THIS TIME, PT IS A/OX4, NO COMPLAINTS OF VILLALBA OR DIZZINESS AT THIS TIME, PT DENIES SOB OR PAIN, IV TO THE RAC CDI FLUSHES WELL, SAFETY PRECAUTIONS IN PLACE WILL CONTINUE TO MONITOR
[2019-03-13 19:27] LABS: AMPHETAMINE QUAL UR NONE DETECTED (See below)
[2019-03-13 20:33] VITALS: BP 152/58
--- NOTE | 2019-03-13 20:47 | NUR ---
PT COMPLAINING OF LIP SWELLING AND ITCHY THROAT, CALLED AND INFORMED DR RODRIGUEZ ABOUT POSSIBLE ALLERGIC REACTION, SHE ORDERED IV BENADRYL, ADMINISTERED, WILL CONTINUE TO MONITOR.
--- NOTE | 2019-03-13 21:15 | NUR ---
PT REPORTS ITCHINESS HAS SUBSIDED, SWELLING OF THE LIPS NO LONGER APPARENT
--- NOTE | 2019-03-13 22:06 | NUR ---
PT HAD SMALL 3 SEC RUN OF VTACH, PT ASYMPTOMATIC, INFORMED DR RODRIGUEZ, NO NEW ORDERS AT THIS TIME.
--- NOTE | 2019-03-13 23:15 | NUR ---
RECEIVED REPORT FROM NURSE FOR CONTINUITY OF CARE, ALL QUESTIONS AND CONCERNS ADDRESSED, PT RESTING IN BED, NO ACUTE DISTRESS NOTED. IV SITE REMAINS PATENT TO RAC, NO REDNESS, SWELLING OR PAIN NOTED. CALL LIGHT WITIHN REACH, BED IN LOWEST POSITION, WILL CONTINUE TO MONITOR.
--- NOTE | 2019-03-13 23:16 | NUR ---
PT STABLE AND IN NO ACUTE DISTRESS AT THIS TIME, ENDORSED CARE TO MARTIN CASTELLON
--- NOTE | 2019-03-14 05:15 | NUR ---
PT RESTED IN INTERVALS DURING SHIFT, NO ACUTE CHANGES OCCURRING OVERNIGHT. PT C/O CHEST PRESSURE, MORPHINE 2MG IVP GIVEN. PT REPORTING ITCHINESS ALTHOUGH UNABLE TO STATE WHAT THE ITCHINESS IS FROM. PT STATES SHE HAS ALOT OF ALLERGIES. PT VSS, PAGED RESIDENT IN REGARDS TO PATIENT REPROTING AN ALLERGIC REACTION ALTHOUGH NO S/S OF RASH, DESATURATION OR CHANGE IN RESP RATE/STATUS. NO WHEEZING NOTED. WILL WAIT FOR FURHTER ORDERS. CALL LIGHT WITHIN REACH, BED IN LOWEST POSITION, WILL CONTINUE TO MONITOR.
[2019-03-14 05:31] VITALS: BP 149/63
[2019-03-14 06:21] LABS: RED CELL DISTRIBUTION WIDTH 20.3 % (11.5-14.5)
[2019-03-14 07:00] LABS: CALCIUM 9.2 mg/dL (8.5-10.1); CARBON DIOXIDE 23.2 mmol/L (21-32); CHLORIDE SERUM 105 mmol/L (98-107); CREATININE SERUM 0.9 mg/dL (0.6-1.0); GFR1 > 60 mL/min; GLUCOSE SERUM 150 mg/dL (74-106); MAGNESIUM 2.4 mg/dL (1.8-2.4); PHOSPHOROUS 2.7 mg/dL (2.5-4.9); POTASSIUM SERUM 4.1 mmol/L (3.5-5.1); SODIUM SERUM 139 mmol/L (136-145)
--- NOTE | 2019-03-14 07:00 | NUR ---
RECEIVED REPORT FROM NIGHT NURSE PATIENT LYING IN BED A&O X4, 96%ON RA NO S/S OF ANY RESPIRATORY DISTRESS DENIES ANY SOB, LUNGS CTA BILAT, PATIENT C/O PAIN IN LUNGS AND BACK OFFERRED TO RESPOSITION AND DIMMED LIGHTS FOR COMFORT WILL MEDICATE WITH PAIN NEDS WHEN DUE PER MAY. V/S STABLE HEART MONITOR # 6 SHOWS NSR PATIENT DENIES CHEST PAIN OR PRESSURE AT THIS TIME. IV ON RAC PATENT AND INTACT. ALL QUESTIONS AND CONCERNS ADDRESSSED AT THIS TIME. BED IN LOWEST POSITION CALL LIGHT WITHIN REACH. WILL CONTINUE TO MONITOR.
--- NOTE | 2019-03-14 07:22 | NUR ---
ENDORSED ALL CARE TP DAYSHIFT NURSE, NO ACUTE DISTRESS NOTED. ALL QUESTIONS AND CONCERNS ADDRESSED, ALL COMFORT AND SAFETY MEASURES PROVIDED FOR, CALL LIGHT WITHIN REACH, BED IN LOWEST POSITION.
[2019-03-14 07:23] LABS: PLATELET COUNT 665 x10^3mcL (130-400)
[2019-03-14 08:39] LABS: MONOCYTE 1 % (0-7); SEGMENTED NEUTROPHILS 87 % (37-75)
--- NOTE | 2019-03-14 08:46 | NUR ---
ADMINISTERED SCHEDULED MEDS PER MAR PATIENT TOLERATED WELL. PATIENT C/O 10/01 PAIN ADMINISTERED MORPHINE 2MG IVP PATIENT TOLERATED WELL NO ADVERSE REACTIONS NOTED. ALL NEEDS ATTENDED TO AT THIS TIME. BED INLOWEST POSITION CALL LIGHT WITHIN REACH. WILL CONTINUE TO MONITOR.
[2019-03-14 08:47] VITALS: BP 135/49
[2019-03-14 08:51] LABS: rbc morphology (normal/abnorm) ABNORMAL (NORMAL)
--- NOTE | 2019-03-14 10:28 | NUR ---
ECHOCARDIOGRAM COMPLETED.
--- NOTE | 2019-03-14 11:25 | NUR ---
BLOOD GLUCOSE 191 PATIENT REFUSED ANY INSULIN STATED "I DON'T TAKE INSULIN" PATIENT LYING IN BED ON HER PHINE C/O 10/01 FLANK PAIN ADMINISTERED MORPHINE 2MG IVP PER MAY Q3H PRN PATIENT TOLERATED WELL NO ADVERSE REACTIONS NOTED. ALL NEEDS ATTENDED TO AT THIS TIME. BED IN LOWEST POSITION CALLL LIGHT WITHIN REACH. WILL CONTINUE TO MONITOR.
--- NOTE | 2019-03-14 12:45 | NUR ---
PATIENT SITTING UP IN BED EATING LUNCH TOLERATING DIET WELL. PATIENT DENIES ANY SOB AT THIS TIME. ALL NEEDS ATTENDED TO. BED IN LOWEST POSITION CALL LIGHT WITHIN REACH. WILL CONTINUE TO MONITOR.
[2019-03-14 13:07] VITALS: BP 121/47
--- NOTE | 2019-03-14 16:14 | NUR ---
PATIENT C/O OF FLANK PAIN 10/01 ADMINISTERED MORPHINE 4MG IVP PER MAY PATIENT TOLERATED WELL NO ADVERSE REACTIONS NOTED. ALL NEEDS ATTENDED TO AT THIS TIME. BED IN LOWEST POSITION CALL LIGHT WITHIN REACH. WILL CONTINUE TO MONITOR.
[2019-03-14 17:14] VITALS: BP 123/50
--- NOTE | 2019-03-14 17:50 | NUR ---
PATIENT C/O ITCHYNESS AND SWOLLEN TONSILS DR ACUÑA MADE AWARE ORDERED BENADRYL IVP PRN ADMINISTERED PER DR ORDERS PATIENT TOLERATED WELL NO ADVERSE REACTIONS NOTED. ALL NEEDS ATTENDED TO WILL CONTINUE TO MONITOR.
--- NOTE | 2019-03-14 18:51 | NUR ---
PATIENT LYING IN BED TALKING WITH FAMILY AT BEDSIDE ON 35L AT 92% NO S/S OF ANY RESPIRATORY DISTRESS NOTED, PATIENT DENIES ANY SOB AT THIS TIME. IV ON RAC PATENT AND INTACT NO REDNESS OR EDEMA NOTED. ON TELE #24 DENIES ANY CHEST PAIN. ALL QUESTIONS AND CONCERNS ADDRESSED AT THIS TIME. BED IN LOWEST POSITION CALL LIGHT WITHIN REACH. WILL CONTINUE TO MONITOR.
--- NOTE | 2019-03-14 19:25 | NUR ---
PT RESTING IN BED WITH NO ACUTE DISTRESS NOTED AT THIS TIME, ASSESSMENT PERFORMED AT THIS TIME, PT IS A/OX4, NO COMPLAINTS OF VILLALBA OR DIZZINESS, PT DENIES SOB OR PAIN AT THIS TIME, IV TO THE RAC SALINE TAMICA, NO REDNESS OR SWELLING, FLUSHES WELL. ALL PT NEEDS ATTENDED TO, SAFETY PRECAUTIONS IN PLACE, WILL CONTINUE TO MOITOR
--- NOTE | 2019-03-14 19:30 | NUR ---
PATIENT LYING IN BED ON HER PHONE UPDATED HER ON CARE PROGRESS PATIENT VERBALIZED UNDERSTANDING. IV ON RAC PATENT AND INTACT NO REDNESS OR EDEMA NOTED. ALL QUESTIONS AND CONCERNS ADDRESSED AT THIS TIME. BED IN LOW POSITION CALL LIGHT WITHIN REACH. PATIENT DENIES ANY CHEST P[AIN AT THIS TIME. WILL ENDORSE CARE TO CHRIS CASTELLONWORKERS COMPENSATION ADMINISTRATOR NURSE.
[2019-03-14 20:59] VITALS: BP 126/52
--- NOTE | 2019-03-14 22:00 | NUR ---
PT RESTING IN BED AND DENIES DISTRESS, PT DENIES CHEST PAIN AT THIS TIME, PT REQUESTED BEVERAGE, ALL NEEDS ATTENDED TO, SAFETY PRECAUTIONS IN PLACE, WILL CONTINUE TO MONITOR
--- NOTE | 2019-03-15 00:30 | NUR ---
PT RESTING AND WATCHING TV WITH NO ACUTE DISTRESS NOTED AT THIS TIME, PT REPORTS PAIN IS AT A TOLERABLE LEVEL SAFETY PRECAUTIONS IN PLACE, WILL CONTINUE TO MONITOR.
--- NOTE | 2019-03-15 03:20 | NUR ---
PT REPORTS ITCHINESS OF THE LEGS AND SHOULDERS, ADMINISTERED BENADRYL PER PRN ORDER, SAFETY PRECAUTIONS IN PLACE, WILL CONTINUE TO MONITOR
[2019-03-15 05:13] VITALS: BP 115/43
--- NOTE | 2019-03-15 06:32 | NUR ---
PT RESTED PERIODICALLY THROUGH NIGHT, PT HAD EPISODIC PAIN TO THE BACK AND FLANKS, PT NONCOMPLIANT WITH DIABETIC PROTOCOL AND REFUSES INSULIN ADMINISTRATION, ALL PT NEEDS MET THROUGH THE NIGHT, SAFETY PRECAUTIONS IN PLACE, WILL CONTINUE TO MONITOR AND ENDORSE CARE
--- NOTE | 2019-03-15 07:10 | NUR ---
RECEIVED REPORT FROM CHRIS CASTELLONCHAIR UPHOLSTERER NURSE PATIENT LYING IN BED A&O X4, DENIES PAIN AT THIE TIME. NO S/S OF ANY RESPIRATORY DISTRESS NOTED. IV ON RAC PATENT AND INTACT NO REDNESS OR EDEMA NOTED. ALL QUESTIONS AND CONCERNS ADDRESSED AT THIS TIME. BED IN LOWEST POSITION CALL LIGHT WITHIN REACH. WILL CONTINUE TO MONITOR.
[2019-03-15 08:45] VITALS: BP 137/51
--- NOTE | 2019-03-15 09:00 | NUR ---
PATIENT C/O FLANK PAIN REQUESTING MORPHINE ADMINISTERED MORPHINE IVP PER MAY FOR MODERATE PPAIN. PATIENT TOLERATED WELL NO ADVERSE REACTIONS NOTED. DRS AT BEDSIDE UPDATING PATIENT ON CARE. PATIENT VERBALIZED UNDERSTANDING. ALL QUESTIONS AND CONCERNS ADDRESSED AT THIS TIME. BED IN LOWEST POSITION CALL LIGHT WITHIN REACH. WILL CONTINUE TO MONITOR.
[2019-03-15] MEDS ORDERED: CLARITHROMYCIN500 M1 PO (11:21)
--- NOTE | 2019-03-15 11:24 | NUR ---
PATIENT C/O ITCHINESS REQUESTED BENADRYL ADMINISTERD BENADRYL IVP PER MAY. NO ADVERSE REACTIONS NOTED. PATIENT SITTING UP IN BED DENIES ANY PAIN AT THIS TIME. ALL NEEDS ADDRESSED AT THIS TIME. BED IN LOWEST POSITION CALL LIGHT WITHIN REACH. WILL CONTINUE TO MONITOR.
[2019-03-15] MEDS ORDERED: COZAAR25 M1 PO (11:45)
[2019-03-15 12:35] VITALS: BP 126/62
--- NOTE | 2019-03-15 13:38 | NUR ---
DISCHARGE TEACHING GIVEN TO PATIENT AND PRESCRIPTIONS PATIENT VERBALIZED UNDERSTANDING. IV D/C'D CATHETER INTACT DRESSING APPLIED PATIENT TOLERATED WELL. ALL PERSONAL BELONGINGS TAKEN WITH PATIENT . PATIENT ESCORTED TO LOBBY PATIENT STABLE FOR DISCHARGE. ALL QUESTIONS AND CONCERNS ADDRESSED AT THIS TIME.
--- NOTE | 2019-03-15 13:55 | NUR ---
PATIENT ESCORTED TO LOBBY STABLE AND ALERT ALL QUESTIONS AND CONCERNS ADDRESSED. FATHER DRIVING HER HOME.
== END 2019-03-15 13:55 | disposition home or self-care (01) | DRG 194 ==
LOC: ED 11:58 → DU 15:47
PROVIDERS: Emergency Medicine; ADMIT Family Medicine
DX: I11.0 Hypertensive heart disease with heart failure (principal); I28.1 Aneurysm of pulmonary artery; D68.69 Other thrombophilia; I27.20 Pulmonary hypertension, unspecified; E11.65 Type 2 diabetes mellitus with hyperglycemia; E44.1 Mild protein-calorie malnutrition; I50.33 Acute on chronic diastolic (congestive) heart failure; N10 Acute pyelonephritis; I16.0 Hypertensive urgency; I25.10 Atherosclerotic heart disease of native coronary artery without angina pectoris; T50.1X6A Underdosing of loop [high-ceiling] diuretics, initial encounter; J44.9 Chronic obstructive pulmonary disease, unspecified; E78.5 Hyperlipidemia, unspecified; F41.1 Generalized anxiety disorder; E66.9 Obesity, unspecified; Z95.1 Presence of aortocoronary bypass graft; Z68.41 Body mass index [BMI] 40.0-44.9, adult; Z90.81 Acquired absence of spleen; Y92.009 Unspecified place in unspecified non-institutional (private) residence as the place of occurrence of the external cause
CPT/HCPCS: 82962; 83880; 85378; 94150; G0378; J0456; J1200; J1644; J1940; J1956; J2270; J2405; J2920; J7050; J7620; Q0092; Q9967

== ENCOUNTER 2019-11-14 11:41 | Inpatient (IN) | payer OTHER ==
[~2019-11-14] VITALS: Ht 167.6 cm; Wt 109.5 kg
[~2019-11-14 11:41] MED LIST changes: +CLARITHROMYCIN500 M1 PO; +COZAAR25 M1 PO
--- NOTE | 2019-11-14 11:56 | NUR ---
PT DENIES PREGANCY AT THIS TIME, PT STS, "I KNOW I AM NOT ."
--- NOTE | 2019-11-14 12:07 | NUR ---
LAB AT BEDSIDE WITH DRAW
--- NOTE | 2019-11-14 12:18 | NUR ---
PT BIBA C/O CHEST PAIN, 6/10, PRESSURE, X 1 HOUR, RIGHT LOWER ABDOMINAL PAIN, 10/10 SHARP, INTERMITTENT, 3 EPISODES OF VOMITING IN THE LAST HOUR, NAUSEA, URINARY FREQUENCY, PT STS SHE WAS DIAGNOSED WITH KIDNEY STONES AND GALLSTONES, IN AUGUST OF 2019, UPON ARRIVAL, PT LAYING ON THE RIGHT SIDE, CRYING, GUARDING, TRANSFERRED TO BED 4 FROM [facility] TO [facility] WITH NO INCIDENT, REPOSITIONED PT FOR COMFORT, AAOX4, GOWNED, PLACED FULL CM, IV ESTABLISHED IN FIELD, 20 G RAC, FLUSHED WITH 10 CC NS WITHOUT DIFFICULTY, SAFETY PRECAUTIONS IN PLACE, INSTRUCTED PT TO PROVIDE URINE SAMPLE SOON POSSIBLE, PT STS "I CANT GIVE YOU URINE RIGHT NOW." SAFETY PRECAUTIONS IN PLACE, CALL LIGHT WITHIN REACH, WILL MONITOR, MSE DONE BY DR ATKINSON.
--- NOTE | 2019-11-14 12:25 | NUR ---
PT REPORTING FEELING ITCHY IN HER THROAT AND LIPS, DENIES SOB, PT STS SHE HAS HAD MORPHINE BEFORE AND HAS NEVER HAD THIS REACTION, STS SHE IS NOT ALLERGIC TO MORPHINE, REPORT TO DR ATKINSON, NEW ORDER RECEIVED FOR BENADRYL 25 MG IV, SEE EMAR
--- NOTE | 2019-11-14 12:25 | NUR ---
REASSESS PT'S PAIN LEVEL, PT STS SHE IS STILL HAVING PAIN, 01/01, REPORTED TO DR. ATKINSON, NEW ORDERS RECEIVED FOR PAIN MEDICATION,
[2019-11-14 12:35] LABS: CALCIUM 8.9 mg/dL (8.5-10.1); CREATININE SERUM 1.3 mg/dL (0.6-1.0); POTASSIUM SERUM 3.4 mmol/L (3.5-5.1)
[2019-11-14 12:39] LABS: BILIRUBIN TOTAL 0.65 mg/dL (0.20-1.00); TOTAL PROTEIN, SERUM 7.8 g/dL (6.4-8.2)
--- NOTE | 2019-11-14 12:44 | NUR ---
DR ATKINSON AT BEDSIDE FOR RE-EVALUATION
[2019-11-14 12:59] LABS: BASOPHIL % 0.1 % (0-2)
[2019-11-14 13:01] LABS: PLATELET COUNT 461 x10^3mcL (130-400); RED CELL DISTRIBUTION WIDTH 23.3 % (11.5-14.5)
[2019-11-14 13:21] LABS: rbc morphology (normal/abnorm) ABNORMAL (NORMAL); target cell (codocyte) 1+
--- NOTE | 2019-11-14 13:45 | NUR ---
PT TAKEN TO RESTROOM VIA WHEELCHAIR, UNABLE TO PROVIDE URINE AT THIS TIME, PT REFUSED STRAIGHT CATHETER, DR. ATKINSON MADE AWARE.
--- NOTE | 2019-11-14 14:10 | NUR ---
PT TO CT VIA AMBERLY MENESES
--- NOTE | 2019-11-14 14:18 | NUR ---
PT RETURNED FROM CT VIA [facility]ENRY WITH NO INCIDENT
--- NOTE | 2019-11-14 14:51 | NUR ---
PT 02 SATURATION AT 89% WHILE SLEEPING APPLIED 2 L/MIN VIA NC CURRENT 02 AT 97%
--- NOTE | 2019-11-14 15:00 | NUR ---
ULTRASOUND AT BEDSIDE
--- NOTE | 2019-11-14 15:42 | NUR ---
ASSISTED PT TO BEDSIDE COMMODE, CALL LIGHT WITHIN REACH.
--- NOTE | 2019-11-14 16:00 | NUR ---
ASSISTED PT BACK TO BED, PT UNABLE TO PROVIDE URINE SAMPLE AT THIS TIME, PT REFUSING TRAYLOR CATHETER, DR. ATKINSON MADE AWARE,
--- NOTE | 2019-11-14 16:45 | NUR ---
MEDICATED PER MD ORDR, PT TOLERATED WELL, SEE EMAR
--- NOTE | 2019-11-14 16:46 | NUR ---
PT AGREES TO STRAIGHT CATHERTER ORDERED BY DR ATKINSON, EXPLANIED RISKS AND BENEFITS,
[2019-11-14 17:09] LABS: UA SPECIFIC GRAVITY >=1.030 (1.005-1.035); microscopic required? YES; urine erythrocyte TRACE (NEGATIVE)
--- NOTE | 2019-11-14 17:12 | NUR ---
PT LAYING IN BED, APPEARS TO BE SLEEPING, [place] TO TOUCH, STS HER PAIN LEVEL IS STILL 10/10, DR ATKINSON MADE AWARE, NO NEW ORDERS AT THIS TIME, REPOSITIONED FOR COMFORT, PT ON 2 L/MIN OXYGEN VIA NC, CALL LIGHT WITHIN REACH, WILL MONITOR.
--- NOTE | 2019-11-14 18:27 | NUR ---
CALLED REPORT TO SINGH FOR HER CHARGE NURSE CHIQUITA, CANNOT GIVE REPORT AT THIS TIME, GENESIS DAVIS MADE AWARE.
[2019-11-14 18:52] LABS: MAGNESIUM 2.1 mg/dL (1.8-2.4)
[2019-11-14 19:01] LABS: T3 TOTAL 1.12 ng/mL
[2019-11-14 19:15] LABS: FREE T4 1.16 ng/dL (0.76-1.46); FREE THYROXINE INDEX 2.4 ug/dL (1.4-4.5); T4(THYROXINE) 6.3 ug/dL (4.7-13.3)
--- NOTE | 2019-11-14 19:15 | NUR ---
REPORT GIVENT TO AJ CASTELLON
--- NOTE | 2019-11-14 19:37 | NUR ---
SPOKE WITH DR HAYS, FOR FLOOR NURSE TO CALL FOR ORDERS,
--- NOTE | 2019-11-14 20:18 | NUR ---
ADMITTING DOCTOR AT PATIENT BESIDE
--- NOTE | 2019-11-14 21:30 | NUR ---
RECEIVED PT FROM ED [facility]IA [facility], CAME IN DUE TO ADBOMINAL PAIN. AAOX4. DENIES HEADACHE/DIZZINESS. ABLE TO FOLLOW COMMANDS. DENIES HEADACHE/DIZZINESS. ABLE TO FOLLOW COMMANDS. DENIES CHEST PAIN/PRESSURE, SINUS TACHYCARDIA W/ OCC. PVC'S. HR AT 115-120 ON THE MONITOR. DENIES SOB, EVEN AND UNLABORED BREATHING. ON ROOM AIR, O2 SAT=89%, PLACED ON 2LPM/NC, O2 SAT=94%. DENIES COUGH. STATED THAT SHE HAS 8/10 RIGHT ABDOMINAL PAIN. DENIES NAUSEA/VOMITING. ABDOMEN IS SOFT AND ROUND. VOIDS. IV SITE PATENT AND INTACT. PT REFUSED MRSA SWAB ( DR. GIANG MADE AWARE) AND TO WEAR PATIENT'S GOWN. PT UNCOOPERATIVE AT TIMES. IM=753/93. SIDE RAILS UPX2. CALL LIGHT ON REACH. HOB ELEVATED AT 30 DEG. ENDORSED TO PRIMARY NURSE [place] FOR CONTINUITY OF CARE
--- NOTE | 2019-11-14 21:35 | NUR ---
PT REFUSED FULL SKIN ASSESSMENT.
[2019-11-14 21:49] VITALS: BP 168/93
--- NOTE | 2019-11-14 21:55 | NUR ---
MD NOTIFIED ABOUT PATIENTS ELEVATED BP. NO FURTHER ORDERS AT THIS TIME.
[2019-11-14 21:58] VITALS: Ht 167.6 cm; Wt 109.5 kg
[2019-11-15] VITALS (7 sets, daily range): BP systolic 107–176; BP diastolic 42–90
[2019-11-15 00:30] LABS: AMPHETAMINE QUAL UR NONE DETECTED (See below)
--- NOTE | 2019-11-15 01:30 | NUR ---
DR NUNEZ ORDERS [place] PO FOR PATIENTS BP. WILL REASSESS BP.
--- NOTE | 2019-11-15 02:50 | NUR ---
BP NOW 135/81
--- NOTE | 2019-11-15 05:32 | NUR ---
DR BARAHONA NOTIFIED ABOUT PATIENTS HX OF DM, AND A1C OF 6.2 FOR FURTHER ORDERS WITH ACCU CHECKS.
--- NOTE | 2019-11-15 07:01 | NUR ---
PATIENT SLEEPING AT THIS TIME. NO C/O PAIN. EVEN AND UNLABORED BREATHING NOTED, ON ROOM AIR. BED IN LOWEST POSITION. CLAL LIGHT WITHIN REACH. WILL CONTINUE TO MONITOR. WILL ENDORSE CARE TO ONCOMING SHIFT. SIDE RAILS UP X2.
--- NOTE | 2019-11-15 07:02 | NUR ---
CANCELLATION REQUESTED FOR ECHOCARDIOGRAM
--- NOTE | 2019-11-15 08:01 | NUR ---
REPORT TAKEN FROM RECREATIONAL THERAPIST NURSE AT THE [facility]. PATIENT AWAKE AND ALERT, WILL CONTINUE TO MONITOR
[2019-11-15 08:17] LABS: CALCIUM 8.8 mg/dL (8.5-10.1); CARBON DIOXIDE 26.3 mmol/L (21-32); CREATININE SERUM 2.8 mg/dL (0.6-1.0); MAGNESIUM 2.3 mg/dL (1.8-2.4); PHOSPHOROUS 5.1 mg/dL (2.5-4.9); POTASSIUM SERUM 4.4 mmol/L (3.5-5.1)
[2019-11-15 09:38] LABS: PLATELET COUNT 448 x10^3mcL (130-400); RED CELL DISTRIBUTION WIDTH 22.8 % (11.5-14.5)
[2019-11-15 13:23] LABS: BAND NEUTROPHIL 5 % (0-10); MONOCYTE 8 % (0-7); SEGMENTED NEUTROPHILS 78 % (37-75)
[2019-11-15 13:24] LABS: PLATELET MORPHOLOGY LARGE PLATELET SEEN; rbc morphology (normal/abnorm) ABNORMAL (NORMAL); target cell (codocyte) 2+
[2019-11-15 15:46] LABS: TOTAL IRON BINDING CAPACITY 395 ug/dL (250-450)
[2019-11-15 15:47] LABS: IRON 27 ug/dL (50-170)
--- NOTE | 2019-11-15 19:25 | NUR ---
RECEIVED PATIENT FROM DAY SHIFT NURSE. PATIENT IN NO ACUTE DISTRESS. AWAKE, ALERT AND ORIENTED X4. PATIENT DENIES ANY FLANK PAIN AT THIS TIME. TELE #2 IN PL[address], ST. HR 115. EVEN AND UNLABORED BREATING NOTED ON ROOM AIR. DENIES ANY SOB, CHEST PAIN OR CHEST PRESSURE. RAC IV WNL. FLUSHING WELL AND GOOD BLOOD RETURN. FLUIDS INFUSING WELL. BED IN LOWEST POSITION. CALL LIGHT WITHIN REACH. SIDE RAILS UP X2.
--- NOTE | 2019-11-15 19:27 | NUR ---
REPORT GIVEN TO HEAD CHARGER NURSE CARE ENDORSED
--- NOTE | 2019-11-15 20:33 | NUR ---
PATIENT C/O 9/10 PAIN LOCATED ON HER RIGHT LOWER ABD. PATIENT MEDICATED PER MAR WITH MORPHINE. BP 120/76, HR 110.
--- NOTE | 2019-11-15 23:55 | NUR ---
PATIENTS C/O 01/01 PAIN. VITALS STABLE. BP 119/69, HR 110. WILL MEDICATE WITH MORPHINE PER MAY.
[2019-11-16 05:28] VITALS: BP 120/54
[2019-11-16 06:51] LABS: PLATELET COUNT 419 x10^3mcL (130-400); RED CELL DISTRIBUTION WIDTH 22.9 % (11.5-14.5)
--- NOTE | 2019-11-16 06:57 | NUR ---
NOTIFIED ABOUT PATIENTS CRITICAL LAB OF WBC AT 46.5
[2019-11-16 07:03] LABS: CALCIUM 8.2 mg/dL (8.5-10.1); CARBON DIOXIDE 24.3 mmol/L (21-32); PHOSPHOROUS 4.2 mg/dL (2.5-4.9); POTASSIUM SERUM 4.6 mmol/L (3.5-5.1)
[2019-11-16 07:30] LABS: CREATININE SERUM 4.3 mg/dL (0.6-1.0)
--- NOTE | 2019-11-16 08:08 | NUR ---
AAO TIMES 4. TELE # 2 ST. LUNGS CTA. O2 SAT ON RA 91%. BS'S ACTIVE TIMES 4. OBESE. NPO FOR HYDA SCAN. C/O RIGHT ABD QUAD PAIN, I AM UNABLE TO MEDICATE HER UNTIL AFTER THE HYDA SCAN. HYDA SCAN WONT DO TEST UNTIL WE HAVE A HCG TEST, THE URINE WAS SENT TO LAB FOR HCG PER DR RODRIGUEZ ORDER. PERIPHERAL PULSES PALPABLE. NO EDEMA. IV SITE LEFT HAND PATENT, CDI.
[2019-11-16 08:09] VITALS: BP 119/55
--- NOTE | 2019-11-16 10:00 | NUR ---
DURING 'S ROUNDS, I LET THEM KNOW SHE WAS UNABLE TO COMPLETE THE HIDA SCAN DUE TO PAIN AND ANXIETY. NO FURTHER ORDERS.
[2019-11-16 10:27] LABS: MONOCYTE 4 % (0-7); SEGMENTED NEUTROPHILS 91 % (37-75)
[2019-11-16 10:29] LABS: BAND NEUTROPHIL 2 % (0-10); rbc morphology (normal/abnorm) ABNORMAL (NORMAL)
[2019-11-16 11:56] VITALS: BP 96/47
[2019-11-16 12:17] LABS: BASOPHIL % 0 % (0-2); PLATELET COUNT 415 x10^3mcL (130-400); RED CELL DISTRIBUTION WIDTH 22.8 % (11.5-14.5)
[2019-11-16 13:53] VITALS: BP 104/63
--- NOTE | 2019-11-16 14:00 | NUR ---
AT 1400, SHE WAS C/O NAUSEA. I GAVE HER ZOFRAN 4 MG IVP AT 1407. AT 1437 SHE STATED HER NAUSEA WAS BETTER.
--- NOTE | 2019-11-16 14:29 | NUR ---
MARCELLUS FERRELL CALL AGAIN TO ER FOR ADMISSION, BASHIR WILL RELAY THE MESSAGE TO HER.
--- NOTE | 2019-11-16 16:01 | NUR ---
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 DURING THIS TIME, PATIENT SAID THAT SHE OFTEN GETS ITCHY THROAT OR SWOLLEN LIPS WITH ANTIBIOTICS, ANY OF THEM. SHE SAID SHE OFTEN GETS BENADRYL PRIOR TO ANTIBIOTICS AND IT HELPS, DR DYER AGREED TO ORDER BENADRYL. AT 1400, AFTER SHE GOT CIPRO, SHE C/O ITCHY THROAT AND HER LIPS WERE SWOLLEN AND TINGLING, I NOTIFIED DR DYER AND I GAVE HER BENADRYL 50 MG IVP AT 1423. AT 1500 SHE SAID SHE FELT, BETTER, SHE WAS SLEEPING, I WOKE HER UP. DR DYER IS ALSO AWARE OF HER REDRAW FOR HER CBC THAT WAS DONE TO RECHECK THE WBC OF 46.5, THIS TIME THE WBC WAS 50.5. DR DYER SAID HE WOULD ORDER A CONSULTATION WITH DR SPARKS, PATIENT RELATIONS MANAGER.
[2019-11-16 17:04] VITALS: BP 108/52
--- NOTE | 2019-11-16 17:33 | NUR ---
O2 SAT ON RA 88%, APPLIED O2 2L NC. O2 SAT NOW 98%
--- NOTE | 2019-11-16 18:16 | NUR ---
DR DYER AWARE THAT DR DYSON ORDERED ANOTHER HIDA SCAN, WHEN SHE WAS UNABLE TO COMPLETE THE ONE ORDERED THIS AM. HE SAID HE WOULD TALK TO DR DYSON. THE ORDER IS STILL ON THE COMPUTER.
--- NOTE | 2019-11-16 18:19 | NUR ---
SLEEPY FROM THE LAST BENADRYL GIVEN, BUT AAO TIMES 4. IV SITE RIGHT WRIST PATENT, CDI. COOPERATIVE. NO C/O PAIN. NO SOB.
[2019-11-16 20:39] VITALS: BP 124/54
--- NOTE | 2019-11-16 20:48 | NUR ---
PT. MOSTLY DOZING, EASY TO WAKE. ORIENTED X4. DENIES HEADACHE OR DIZZINESS. BREATH SOUNDS CLEAR THROUGHOUT LUNG BOO, BLL SLIGHTLY DIMINISHED. RESP. 26. PT. TACHYCARDIC 118 ON MONITOR. DENIES CHESTPAIN OR DISCOMFORT. ABD. SOFT AND ROUND, OBESE. PT. C/O RT. MID QUAD. ABD. PAIN, 9/10 PER PT. PRN MORPHINE GIVEN ORDERED. NO EDEMA NOTED TO EXTREMITIES. PEDAL PULSES STRONG CURT. IV SITE TO RFA, INTACT, PATENT. CALL LIGHT WITHIN REACH. WILL MONITOR PAIN.
--- NOTE | 2019-11-16 22:47 | NUR ---
DR. SPARKS CALLED FOR PATIENT UPDATE. RECEIVED ORDERS FOR IV ANTIBIOTIC, DOXYCYCLINE AND ALSO AZACTAM IVPB. ORDERS SUBMITTED TO PHARMACY.
--- NOTE | 2019-11-17 02:12 | NUR ---
PT. SLEEPING AT THIS TIME. IVF INFUSING WELL, SITE INTACT. CALL LIGHT REMAINS WITHIN REACH.
[2019-11-17 05:37] VITALS: BP 133/85
--- NOTE | 2019-11-17 06:51 | NUR ---
PT. MOSTLY DOZING. IV SITE INTACT. NO FURTHER C/O PAIN THIS AM. CALL LIGHT WITHIN REACH. WILL ENDORSE PT. CARE TO INCOMING NURSE.
[2019-11-17 07:30] LABS: CALCIUM 7.5 mg/dL (8.5-10.1); CARBON DIOXIDE 21.3 mmol/L (21-32); MAGNESIUM 2.2 mg/dL (1.8-2.4); PHOSPHOROUS 5.7 mg/dL (2.5-4.9); POTASSIUM SERUM 4.7 mmol/L (3.5-5.1)
[2019-11-17 07:51] LABS: CREATININE SERUM 5.6 mg/dL (0.6-1.0)
[2019-11-17 08:08] LABS: C REACTIVE PROTEIN 43.9 mg/dL (<=0.9)
[2019-11-17 08:12] LABS: PLATELET COUNT 429 x10^3mcL (130-400); RED CELL DISTRIBUTION WIDTH 22.8 % (11.5-14.5)
--- NOTE | 2019-11-17 08:29 | NUR ---
C/O NAUSEA, GAVE ZOFRAN 4 MG IVP AT 0832. SHE NOW STATES HER NAUSEA IS BETTER. SHE C/O SLIGHT ITCHINESS, AND SHE WAS A LITTLE AFRAID OF A REACTION WITH THE NEW ANTIBIOTIC AZACTAM DUE, SO I GAVE HER BENADRYL 25 MG IVP AT 0829.
[2019-11-17 08:54] LABS: ERYTHROCYTE SED RATE 86 mm/hr (0-20)
--- NOTE | 2019-11-17 08:55 | NUR ---
AAO TIMES 4. TELE # [address] LUNGS CTA BUL, DIMINISHED BASES. O2 SAT ON RA 96%. BS'S ACTIVE TIMES 4. CASTRO STRONG. IV SITE RFA CDI. COOPERATIVE WITH ME. PERIPHERAL PULSES PALPABLE. NO EDEMA. C/O RLQ ABD PAIN. IV SITE RFA CDI.
[2019-11-17 08:58] VITALS: BP 102/64
[2019-11-17 09:00] LABS: BAND NEUTROPHIL 2 % (0-10); MONOCYTE 4 % (0-7); SEGMENTED NEUTROPHILS 87 % (37-75)
--- NOTE | 2019-11-17 09:00 | NUR ---
I TOLD HER THAT DR COX IS STILL REQUESTING THAT SHE GET THE HIDA SCAN, AND SHE IS STILL REFUSING. I TOLD HER THE REASON HE WANTS TO DO THIS TEST, THAT IT WILL SHOW ANY PROBLEMS WITH HER GALL BLADDER SO WE CAN FIX IT, SHE STILL SHOOK HER HEAD NO AND SAYS SHE DOESNT WANT IT. I WILL NOTIFY DR COX WHEN HE GETS HERE AND WILL REFER HIM TO TALK WITH HER.
[2019-11-17 09:01] LABS: rbc morphology (normal/abnorm) ABNORMAL (NORMAL); target cell (codocyte) 1+
[2019-11-17 12:49] VITALS: BP 99/78
[2019-11-17 17:10] VITALS: BP 154/43
--- NOTE | 2019-11-17 18:04 | NUR ---
AAO TIMES 4. COOPERATIVE, EXCEPT SHE REFUSED TO DO THE HIDA SCAN THIS AM. TELE # [address] VS'S STABLE. NO SOB. NO C/O PAIN.
--- NOTE | 2019-11-17 20:00 | NUR ---
PATIENT RECEIVED ALERT, ORIENTED X4, RESTING IN BED. RESPIRATION EVEN AND UNLABORED, ON ROOM AIR. IV SITE WAS PULLED OUT, REINSERTED A NEW IV SITE ON THE R UPPER ARM. COMPLAINED OF ABDOMINAL PAIN, 01/01. LBM 11/14. POOR APPETITE. VOIDING FREELY IN THE BATHROOM WITHOUT DIFFICULTY. AMBULATORY. SKIN INTACT. ON TELE #2. WILL CONTINUE TO MONITOR.
[2019-11-17 21:29] VITALS: BP 98/65
[2019-11-17 22:45] VITALS: BP 101/48
[2019-11-18 05:29] VITALS: BP 107/54
--- NOTE | 2019-11-18 06:23 | NUR ---
PATIENT AWAKE, ALERT, SITTING ON THE BED WITH COMPLAIN OF ABDOMINAL PAIN, 10/10. MEDICATED WITH MORPHINE SULFATE 4 MG IVP AND BENADRYL 25 MG IVP ORDERED. IV SITE PATENT AND INTACT. ASSISTED WITH NEEDS. SAFETY OBSERVED. PLACED BED IN THE LOWEST POSITION. PLACED CALL LIGHT WITHIN REACH AT ALL TIMES.
[2019-11-18 06:44] LABS: CALCIUM 7.7 mg/dL (8.5-10.1); CARBON DIOXIDE 13.5 mmol/L (21-32); POTASSIUM SERUM 4.7 mmol/L (3.5-5.1)
[2019-11-18 06:54] LABS: CREATININE SERUM 6.3 mg/dL (0.6-1.0); MAGNESIUM 2.6 mg/dL (1.8-2.4); PHOSPHOROUS 6.4 mg/dL (2.5-4.9)
--- NOTE | 2019-11-18 07:20 | NUR ---
SEEN AOX4, NOT IN DISTRESS, TELE 2, ST, PALPABLE PULSES, NO EDEMA, DIMINISHED BLF, O2 AT 2LPM VIA NC O2 SAT 92%, +BS, POOR APPETITE, VOIDS WELL , GENERALIZED WEAKNESS, SKIN DRY INTACT, NO PAIN AT THIS TIME, PREVIOUSLY MEDICATED WITH MORPHINE AT 0600, IV INTACT AND PATENT, NO REDNESS OR SWELLING, CALL LIGHT WITHIN REACH, BED AT LOWEST POSITION, SIDE RAILS UP.
[2019-11-18 08:13] LABS: PLATELET COUNT 459 x10^3mcL (130-400); RED CELL DISTRIBUTION WIDTH 22.8 % (11.5-14.5)
--- NOTE | 2019-11-18 08:26 | NUR ---
BP 102/44. METOPROLOL ON HOLD . MEDICATIONS GIVEN PER EMAR. PATIENT IN RA, NOT IN DISTRESS, ZOFRAN IVP GIVEN FOR NAUSEA. AZTREONAM IVPB INFUSING WELL AT 100CC/HR. NO REDNESS OR SWELLING.
[2019-11-18 08:32] VITALS: BP 102/44
--- NOTE | 2019-11-18 09:05 | NUR ---
CALLED RESIDENT'S CALL PHONE AND SPOKE WITH DR HORN REGARDING PATIENT'S WANTING TO LEAVE AMA FOR A SECOND OPINION OF HER CREATININE RESULTS. PER DR HORN, RESIDENT IN CHARGE TODAY IS DR DYER AND HE WILL LET DR DYER KNOW
[2019-11-18 10:23] LABS: BAND NEUTROPHIL 2 % (0-10); MONOCYTE 4 % (0-7); SEGMENTED NEUTROPHILS 81 % (37-75)
[2019-11-18 10:24] LABS: rbc morphology (normal/abnorm) ABNORMAL (NORMAL)
[2019-11-18 10:25] LABS: burr cell (echinocyte) 1+; target cell (codocyte) 1+
[2019-11-18 11:33] VITALS: BP 97/53
--- NOTE | 2019-11-18 11:34 | NUR ---
BP 97/53, HR 100, 24 RR. CHEST PRESSURE LIKE PAIN 5/10, PATIENT REQUESTED PAIN MEDICATION . MORPHINE IVP GIVEN. ITCHINESS NOTED. BENADRYL IVP GIVEN. VTACH [address] DYER MADE AWARE. STAT EKG ORDERED. CONSULT WITH DR SOSA, HYDROTHERAPIST ORDERED.
--- NOTE | 2019-11-18 11:49 | NUR ---
DR DYER MADE AWARE OF CA, MG, AND P RESULTS. PHOSLO ORDERED.
--- NOTE | 2019-11-18 12:12 | NUR ---
DR DYER MADE AWARE OF EKG RESULTS. PER DR DYER, DR SOSA IS CONSULTED .
--- NOTE | 2019-11-18 12:40 | NUR ---
DR DYER SPOKE WITH PATIENT AND MADE AWARE OF HEART CONDITION. PER DR DYER, YOU HAVE MILD HEART ATTACK AND IT MAY BE IN YOUR BEST INTEREST THAT WE KEEP YOU HERE BECAUSE OF YOUR HEART. YOUR EKG RESULTS SHOWED ISCHEMIA AND I ALREADY CONSULTED THE TRIPE FINISHER TO COME AND SEE YOU. PER PATIENT, PLEASE SPEAK TO HER BROTHER REGARDING THIS ISSUE. DR DYER SPOKE WITH BROTHER AND MADE AWARE OF ABOVE STATUS. PER PATIENT, SHE WILL STAY FOR NOW.
--- NOTE | 2019-11-18 13:15 | NUR ---
PHOSLO PO GIVEN FOR P 6.4
--- NOTE | 2019-11-18 13:50 | NUR ---
PER MARCO, PATIENT'S ADJUSTED BODY WEIGHT IS 79KG. PER MARCO, SHE WILL PUT IN THE ORDER DETAILS.
--- NOTE | 2019-11-18 14:15 | NUR ---
FLAGYL IVPB INFUSING WELL AT 100CC/HR. NO REDNESS OR SWELLING.
--- NOTE | 2019-11-18 14:34 | NUR ---
DR DYER MADE AWARE TO ORDER BASELINE PTT FOR HEPARIN DRIP. PER DR DYER, HE WILL ORDER
--- NOTE | 2019-11-18 15:23 | NUR ---
VIBRAMYCIN IVPB INFUSING WELL AT 100CC/HR. NO REDNESS OR SWELLING.
--- NOTE | 2019-11-18 15:45 | NUR ---
PRIMARY RN PRISCILA AT LUNCH, DR. DYER MADE AWARE OF TROPONIN OF 0.201
--- NOTE | 2019-11-18 16:00 | NUR ---
CBG 105. NO INSULIN REQUIRED
[2019-11-18 16:07] VITALS: BP 186/121
--- NOTE | 2019-11-18 16:09 | NUR ---
DR SOSA MADE AWARE OF ANOTHER EPISODE OF VTACH 6 RUNS. FOLLOWED UP WITH LAB REGARDING PTT AND PT LAB DRAW.
--- NOTE | 2019-11-18 16:19 | NUR ---
PER DR SOSA, ORDER ANOTHER TROPONIN IN 8 HOURS
--- NOTE | 2019-11-18 16:30 | NUR ---
DR DYER MADE AWARE PATIENT WANTS TO AMA. PER DR DYER HE WILL SPEAK WITH PATIENT. DR DYER SPOKE WITH PATIENT AND WARNED ABOVE THE RISKS OF LEAVING AMA. PER PATIENT, SHE UNDERSTOOD RISKS. PATIENT SIGNED AMA FORM AND PLACED IN CHART. PER DR DYER, PLEASE LEAVE IV ON LFA BECAUSE PATIENT IS HARD STICK AND SINCE PATIENT WILL GO DIRECTLY TO [facility] TO SEEK CONSULT.
== END 2019-11-18 16:56 | disposition left against medical advice (07) | DRG 469 ==
LOC: ED 11:41 → DU 17:14 → MU 17:14 → DU 21:49
PROVIDERS: Emergency Medicine; Internal Medicine; Internal Medicine Nephrology; ADMIT Student in an Organized Health Care Education/Training Program; ATTEND Student in an Organized Health Care Education/Training Program
DX: N17.0 Acute kidney failure with tubular necrosis (principal); I47.2 Ventricular tachycardia; I27.20 Pulmonary hypertension, unspecified; I11.0 Hypertensive heart disease with heart failure; I50.22 Chronic systolic (congestive) heart failure; E11.9 Type 2 diabetes mellitus without complications; D47.3 Essential (hemorrhagic) thrombocythemia; D64.9 Anemia, unspecified; E78.00 Pure hypercholesterolemia, unspecified; E78.5 Hyperlipidemia, unspecified; Z95.1 Presence of aortocoronary bypass graft; F41.9 Anxiety disorder, unspecified; I25.10 Atherosclerotic heart disease of native coronary artery without angina pectoris; E87.6 Hypokalemia; Z88.5 Allergy status to narcotic agent; Z88.0 Allergy status to penicillin; Z53.29 Procedure and treatment not carried out because of patient's decision for other reasons
CPT/HCPCS: 82962; 84439; 99406; G0378; J0744; J1200; J1644; J2270; J2405; J3010; J3490; J7030; J7040; J7050; Q0092